=== PATIENT | female | born 1975 | race African-American/Black ===

== ENCOUNTER 2016-12-08 00:10 | Emergency (ER) | payer OTHER ==
[~2016-12-08] VITALS: Ht 152.4 cm; Wt 95.3 kg
[~2016-12-08 00:10] MED LIST: AMOXICILLIN 50500 MG PO; AUGMENTIN 875875 MG PO; FIORICET 50-321 EACH PO; FLEXERIL PO; FLONASE 0.05%50 MCG NS; HYDROCODON-ACE1 EAC7 PO; IBUPROFEN 800800 M1; INDOMETHACIN 2525 MG PO; LISINOPRIL10 MG PO; MECLIZINE HCL25 M1 PO; NAPROSYN500 MG PO; NORCO 5-325 TA1 EACH PO; NORFLEX100 MG PO; PRINIVIL10 MG PO; VICODIN 5-5001 EACH PO; ZANTAC 150MG T150 M1 PO; ZOFRAN4 MG PO
[2016-12-08] MEDS ORDERED: LISINOPRIL10 MG PO (02:41)
[2016-12-08 03:41] LABS: URINE BILIRUBIN NEGATIVE (Negative); URINE BLOOD 3+ (Negative); URINE COLOR YELLOW; URINE GLUCOSE-RANDOM* NEGATIVE (Negative); URINE KETONES NEGATIVE (Negative); URINE LEUKOCYTES-REFLEX TRACE (Negative); URINE PROTEIN (DIPSTICK) NEGATIVE (Negative)
[2016-12-08 03:54] LABS: SQUAMOUS 0-3 Few /LPF (0-3)
[2016-12-08 03:55] LABS: CASTS None Seen /LPF (None Seen); CRYSTALS None Seen /LPF (None Seen); URINE WBC-REFLEX 0-5 Rare /HPF (0-5)
[2016-12-08 04:03] LABS: ABSOLUTE NEUTROPHILS 5.4 thou/uL (1.4-8.2); BASOPHILS 0.5 % (0.0-2.0); EOSINOPHILS 1.1 % (0.0-3.0); HEMATOCRIT 39.9 % (37.0-47.0); HEMOGLOBIN 13.5 gm/dL (12.0-15.0); LYMPHOCYTES 36.2 % (24.0-44.0); MCH 29.2 pg (26.0-34.0); MCHC 33.9 % (28.0-37.0); MCV 86.1 fL (80.0-100.0); MONOCYTES 5.1 % (1.0-8.0); PLATELET COUNT 236 thou/uL (150-400); POLYS 57.1 % (36.0-66.0); RBC 4.63 mil/uL (4.20-5.00); RDW 14.2 % (10.5-14.5); WBC 9.4 thou/uL (4.0-11.0)
[2016-12-08 04:08] LABS: MANUAL DIFF NO
[2016-12-08 05:00] LABS: CALCIUM 8.6 mg/dL (8.5-10.1)
[2016-12-08 05:10] LABS: ALBUMIN 3.3 g/dL (3.4-5.0); TOTAL BILIRUBIN 0.3 mg/dL (<0.1-1.0); TOTAL PROTEIN 7.5 g/dL (6.4-8.2)
[2016-12-08] MEDS ORDERED: IBUPROFEN 800800 MG PO (05:25)
[2016-12-08 05:35] LABS: POTASSIUM 3.7 mmol/L (3.5-5.1)
[2016-12-08 05:45] VITALS: BP 157/97
== END 2016-12-08 05:46 | disposition home or self-care (01) ==
LOC: ER 00:10
PROVIDERS: Emergency Medicine
DX: D25.9 Leiomyoma of uterus, unspecified (principal); I10 Essential (primary) hypertension; F17.210 Nicotine dependence, cigarettes, uncomplicated; F10.99 Alcohol use, unspecified with unspecified alcohol-induced disorder

== ENCOUNTER 2017-07-11 09:45 | Emergency (ER) | payer BC ==
[~2017-07-11] VITALS: Ht 152.4 cm; Wt 95.3 kg
[~2017-07-11 09:45] MED LIST changes: +IBUPROFEN 800800 MG PO
[2017-07-11] MEDS ORDERED: NORVASC5 MG PO (09:51)
[2017-07-11] MEDS ORDERED: NORCO 5-325 TA1 EACH PO (09:51)
[2017-07-11] MEDS ORDERED: PREDNISONE 20 M20 MG PO (11:23)
[2017-07-11 11:41] VITALS: BP 157/94
== END 2017-07-11 12:06 | disposition home or self-care (01) ==
LOC: ER 09:45
DX: R51 Headache (principal); M54.12 Radiculopathy, cervical region; I10 Essential (primary) hypertension; F17.210 Nicotine dependence, cigarettes, uncomplicated; F10.99 Alcohol use, unspecified with unspecified alcohol-induced disorder

== ENCOUNTER 2018-01-15 16:08 | Emergency (ER) | payer OTHER ==
[~2018-01-15] VITALS: Ht 152.4 cm; Wt 106.1 kg
[~2018-01-15 16:08] MED LIST changes: +NORVASC5 MG PO; +PREDNISONE 20 M20 MG PO
[2018-01-15] MEDS ORDERED: LISINOPRIL20 MG PO (16:13)
[2018-01-15] MEDS ORDERED: BENADRYL25 MG PO (16:29)
[2018-01-15] MEDS ORDERED: NEOMYC-POLYM-DEX5 ML OPHTHALMIC (16:29)
[2018-01-15] MEDS ORDERED: BUTALB-APAP-CA1 EACH PO (16:29)
[2018-07-23] MEDS ORDERED: ANTIVERT25 MG PO (09:58)
== END 2018-01-15 16:42 | disposition home or self-care (01) ==
LOC: ER 16:08
DX: H10.9 Unspecified conjunctivitis (principal); H05.222 Edema of left orbit; R51 Headache; J30.9 Allergic rhinitis, unspecified; I10 Essential (primary) hypertension; F17.210 Nicotine dependence, cigarettes, uncomplicated

== ENCOUNTER 2019-09-04 08:49 | Emergency (ER) | payer BC ==
[~2019-09-04] VITALS: Ht 152.4 cm; Wt 104.3 kg
[~2019-09-04 08:49] MED LIST changes: +ANTIVERT25 MG PO; +BENADRYL25 MG PO; +BUTALB-APAP-CA1 EACH PO; +LISINOPRIL20 MG PO; +NEOMYC-POLYM-DEX5 ML OPHTHALMIC
[2019-09-04 09:30] LABS: URINE BILIRUBIN NEGATIVE (Negative); URINE BLOOD NEGATIVE (Negative); URINE CLARITY CLEAR; URINE COLOR YELLOW; URINE GLUCOSE-RANDOM* NEGATIVE (Negative); URINE KETONES NEGATIVE (Negative); URINE LEUKOCYTES-REFLEX NEGATIVE (Negative); URINE NITRITE-REFLEX NEGATIVE (Negative); URINE PROTEIN (DIPSTICK) NEGATIVE (Negative); URINE SPECIFIC GRAVITY 1.015 (1.005-1.035)
[2019-09-04] MEDS ORDERED: METHOCARBAMOL500 M2 PO (10:07)
[2019-09-04] MEDS ORDERED: NAPROSYN500 MG PO (10:07)
[2019-09-04 10:27] VITALS: BP 154/91
== END 2019-09-04 10:35 | disposition home or self-care (01) ==
LOC: ER 08:49
PROVIDERS: Emergency Medicine
DX: M54.5 Low back pain (principal); I10 Essential (primary) hypertension; F17.210 Nicotine dependence, cigarettes, uncomplicated

== ENCOUNTER 2019-10-21 19:02 | Emergency (ER) | payer BC ==
[~2019-10-21] VITALS: Ht 152.4 cm; Wt 104.3 kg
[~2019-10-21 19:02] MED LIST changes: +METHOCARBAMOL500 M2 PO
[2019-10-21 19:51] LABS: BASOPHILS 0.7 % (0.0-2.0); EOSINOPHILS 0.7 % (0.0-3.0); HEMATOCRIT 42.3 % (37.0-47.0); HEMOGLOBIN 13.9 gm/dL (12.0-15.0); LYMPHOCYTES 22.9 % (24.0-44.0); MCH 28.7 pg (26.0-34.0); MCHC 32.9 g/dL (28.0-37.0); MCV 87.1 fL (80.0-100.0); MONOCYTES 4.8 % (1.0-8.0); PLATELET COUNT 278 thou/uL (150-400); POLYS 70.9 % (36.0-66.0); RBC 4.86 mil/uL (4.20-5.00); RDW 15.5 % (10.5-14.5); WBC 12.8 thou/uL (4.0-11.0)
[2019-10-21 19:57] LABS: CALCIUM 9.4 mg/dL (8.5-10.1)
[2019-10-21 21:29] LABS: URINE BILIRUBIN NEGATIVE (Negative); URINE BLOOD NEGATIVE (Negative); URINE CLARITY TURBID; URINE COLOR YELLOW; URINE GLUCOSE-RANDOM* NEGATIVE (Negative); URINE KETONES NEGATIVE (Negative); URINE LEUKOCYTES-REFLEX NEGATIVE (Negative); URINE NITRITE-REFLEX NEGATIVE (Negative); URINE PROTEIN (DIPSTICK) NEGATIVE (Negative); URINE SPECIFIC GRAVITY >= 1.030 (1.005-1.035); URINE UROBILINOGEN 0.2 E.U./dl (0.2-1.0)
[2019-10-21] MEDS ORDERED: ZESTRIL20 MG PO (21:32)
[2019-10-21] MEDS ORDERED: NORVASC5 M1 PO (21:33)
[2019-10-21] MEDS ORDERED: OMEPRAZOLE 20 M20 M1 PO (21:34)
[2019-10-21 21:47] VITALS: BP 179/106
--- NOTE | 2019-10-22 08:41 | EKG ---
[place] [address] [facility] [place] [address] ELECTROCARDIOGRAM REPORT Name: ELISA ROBLES Room #: [facility]#: [id number] Admission: 10/21/19 Attend Phys: Discharge: 10/21/19 Date of : 71 Report #: [id number] THIS REPORT FOR: //name// [facility] ED Test Date: 2019-10-21 Test Time: 19:51:16 Pat Name: ELISA ROBLES Department: Room: Gender: F [facility]: BRITTNI : 1975 Requested By: Ping Peck Order Number: [id number] MD: Gallo Pedraza Measurements Intervals [place] Rate: 93 P: 8 NM: 156 QRS: -35 QRSD: 82 T: 44 QT: 360 QTc: 448 Interpretive Statements Sinus rhythm Left axis deviation Abnormal R-wave progression, late transition Compared to ECG 09/25/2017 15:45:37 No significant change was found Electronically Signed On 10-22-2019 8:41:13 CLINICAL INFORMATICS EDUCATOR by Gallo Pedraza [email or web address] <ELECTRONICALLY SIGNED> By: Gallo Pedraza MD, [facility] 10/22/19 0841 50 50 Gallo Pedraza MD, FACC /EPI
== END 2019-10-21 21:49 | disposition home or self-care (01) ==
LOC: ER 19:02
PROVIDERS: Nurse Practitioner
DX: I10 Essential (primary) hypertension (principal); R42 Dizziness and giddiness; R51 Headache; F17.210 Nicotine dependence, cigarettes, uncomplicated; Z79.899 Other long term (current) drug therapy

== ENCOUNTER 2019-11-21 09:42 | Emergency (ER) | payer BC ==
[~2019-11-21] VITALS: Ht 152.4 cm; Wt 104.3 kg
[~2019-11-21 09:42] MED LIST changes: +NORVASC5 M1 PO; +OMEPRAZOLE 20 M20 M1 PO; +ZESTRIL20 MG PO
[2019-11-21] MEDS ORDERED: MOBIC7.5 MG PO ×2 (11:37→11:42)
[2019-11-21] MEDS ORDERED: PREDNISONE 20 M20 MG PO ×2 (11:37→11:42)
[2019-11-21 11:45] VITALS: BP 149/89
== END 2019-11-21 11:46 | disposition home or self-care (01) ==
LOC: ER 09:42
DX: R05 Cough (principal); I10 Essential (primary) hypertension; F17.210 Nicotine dependence, cigarettes, uncomplicated

== ENCOUNTER 2019-12-07 17:15 | Observation (INO) | payer BC ==
[~2019-12-07] VITALS: Ht 152.4 cm; Wt 108.8 kg
[2019-12-07 17:15] VITALS: BP 188/107
[~2019-12-07 17:15] MED LIST changes: +MOBIC7.5 MG PO
[2019-12-07 19:45] LABS: HEMATOCRIT 43.2 % (37.0-47.0); HEMOGLOBIN 14.2 gm/dL (12.0-15.0); MCHC 32.8 g/dL (28.0-37.0); MCV 88.5 fL (80.0-100.0); RBC 4.88 mil/uL (4.20-5.00); RDW 15.3 % (10.5-14.5); WBC 12.2 thou/uL (4.0-11.0)
[2019-12-07 19:58] LABS: CALCIUM 8.7 mg/dL (8.5-10.1); CREATININE 0.9 mg/dL (0.6-1.0)
[2019-12-07 20:15] VITALS: BP 155/82
[2019-12-07 20:28] VITALS: BP 149/81
[2019-12-07 23:44] VITALS: BP 133/56
[2019-12-08 03:13] VITALS: BP 125/55
--- NOTE | 2019-12-08 06:01 | NUR ---
Admitted pt from ED last night about 2029. Pt has rested intermittently. Top lip noted to be slightly swollen, but no tongue swelling noted. Pt reports some itching to lip this a.m. Resps even/unlabored, no distress, NSR per tele. Progressing towards discharge goals.
[2019-12-08 07:22] VITALS: BP 132/80
[2019-12-08] MEDS ORDERED: NORVASC10 MG PO (09:41)
[2019-12-08] MEDS ORDERED: PREDNISONE 5 MG5 M1 PO (09:42)
--- NOTE | 2019-12-08 10:37 | NUR ---
PATIENT WILL BE DISCHARGED THIS AM. SHE IS ALERT ORIENTED X3. SHE AMBULATES WITH STEADY GAIT. ANGIOEDEMA SIGNIFICANTLY IMPROVED. HE HAS UNLABORED RESPIRATIONS. WILL CONT WITH PLAN OF CARE.
[2019-12-08 10:48] VITALS: BP 132/80
== END 2019-12-08 11:00 | disposition home or self-care (01) ==
LOC: ER 17:15 → EROBS 19:14 → 3W 19:14
PROVIDERS: Emergency Medicine Emergency Medical Services; ADMIT Hospitalist
DX: T78.3XXA Angioneurotic edema, initial encounter (principal); Y92.89 Other specified places as the place of occurrence of the external cause
CPT/HCPCS: 10879

== ENCOUNTER 2020-05-11 16:17 | Emergency (ER) | payer BC ==
[~2020-05-11] VITALS: Ht 152.4 cm; Wt 104.3 kg
[~2020-05-11 16:17] MED LIST changes: +NORVASC10 MG PO; +PREDNISONE 5 MG5 M1 PO
[2020-05-11] MEDS ORDERED: MOBIC15 MG PO (17:59)
[2020-05-11] MEDS ORDERED: CYCLOBENZAPRINE5 MG PO (17:59)
[2020-05-11 18:02] VITALS: BP 161/98
== END 2020-05-11 18:08 | disposition home or self-care (01) ==
LOC: ER 16:17
DX: S43.82XA Sprain of other specified parts of left shoulder girdle, initial encounter (principal); M54.12 Radiculopathy, cervical region; M17.11 Unilateral primary osteoarthritis, right knee; I10 Essential (primary) hypertension; F17.210 Nicotine dependence, cigarettes, uncomplicated; Z98.890 Other specified postprocedural states; X58.XXXA Exposure to other specified factors, initial encounter; Y93.89 Activity, other specified; Y92.89 Other specified places as the place of occurrence of the external cause; Y99.8 Other external cause status

== ENCOUNTER 2020-05-20 00:55 | Emergency (ER) | payer BC ==
[~2020-05-20] VITALS: Ht 152.4 cm; Wt 104.3 kg
[~2020-05-20 00:55] MED LIST changes: +CYCLOBENZAPRINE5 MG PO; +MOBIC15 MG PO
[2020-05-20 01:01] VITALS: BP 113/64
[2020-05-20] MEDS ORDERED: BENADRYL25 MG PO (01:05)
[2020-05-20] MEDS ORDERED: PERCOCET 5-3251 EACH PO (01:33)
== END 2020-05-20 01:45 | disposition home or self-care (01) ==
LOC: ER 00:55
DX: S92.345A Nondisplaced fracture of fourth metatarsal bone, left foot, initial encounter for closed fracture (principal); S92.355A Nondisplaced fracture of fifth metatarsal bone, left foot, initial encounter for closed fracture; I10 Essential (primary) hypertension; F17.210 Nicotine dependence, cigarettes, uncomplicated; Z98.890 Other specified postprocedural states; Z79.899 Other long term (current) drug therapy; Z88.8 Allergy status to other drugs, medicaments and biological substances; W22.09XA Striking against other stationary object, initial encounter; Y93.89 Activity, other specified; Y92.002 Bathroom of unspecified non-institutional (private) residence as the place of occurrence of the external cause; Y99.8 Other external cause status

== ENCOUNTER 2021-09-13 01:32 | Emergency (ER) | payer OTHER ==
[~2021-09-13] VITALS: Ht 152.4 cm; Wt 66.7 kg
[~2021-09-13 01:32] MED LIST changes: +PERCOCET 5-3251 EACH PO
[2021-09-13] MEDS ORDERED: NAPROSYN500 M1 PO (02:15)
[2021-09-13 03:08] VITALS: BP 148/93
== END 2021-09-13 03:09 | disposition home or self-care (01) ==
LOC: ER 01:32
DX: S82.64XA Nondisplaced fracture of lateral malleolus of right fibula, initial encounter for closed fracture (principal); I10 Essential (primary) hypertension; F17.210 Nicotine dependence, cigarettes, uncomplicated; Z88.8 Allergy status to other drugs, medicaments and biological substances; X50.1XXA Overexertion from prolonged static or awkward postures, initial encounter; Y93.89 Activity, other specified; Y92.89 Other specified places as the place of occurrence of the external cause; Y99.8 Other external cause status

== ENCOUNTER 2021-09-21 18:53 | Emergency (ER) | payer OTHER ==
[~2021-09-21] VITALS: Ht 152.4 cm; Wt 81.7 kg
[~2021-09-21 18:53] MED LIST changes: +NAPROSYN500 M1 PO
[2021-09-21 18:56] VITALS: BP 184/114
[2021-09-21] MEDS ORDERED: NORVASC10 MG PO ×2 (20:43→21:00)
== END 2021-09-21 21:27 | disposition home or self-care (01) ==
LOC: ER 18:53
DX: S82.61XD Displaced fracture of lateral malleolus of right fibula, subsequent encounter for closed fracture with routine healing (principal); M79.604 Pain in right leg; I10 Essential (primary) hypertension; E66.01 Morbid (severe) obesity due to excess calories; F17.210 Nicotine dependence, cigarettes, uncomplicated; Z98.890 Other specified postprocedural states; Z68.35 Body mass index [BMI] 35.0-35.9, adult; Z88.8 Allergy status to other drugs, medicaments and biological substances; Z79.899 Other long term (current) drug therapy; X58.XXXD Exposure to other specified factors, subsequent encounter

== ENCOUNTER 2021-10-30 01:54 | Emergency (ER) | payer OTHER ==
[~2021-10-30] VITALS: Ht 152.4 cm; Wt 104.3 kg
[2021-10-30] MEDS ORDERED: NAPROSYN500 MG PO (02:13)
[2021-10-30 02:47] VITALS: BP 142/82
== END 2021-10-30 02:47 | disposition home or self-care (01) ==
LOC: ER 01:54
DX: S00.93XA Contusion of unspecified part of head, initial encounter (principal); I10 Essential (primary) hypertension; E66.01 Morbid (severe) obesity due to excess calories; F17.210 Nicotine dependence, cigarettes, uncomplicated; Z68.41 Body mass index [BMI] 40.0-44.9, adult; Z98.890 Other specified postprocedural states; Z79.899 Other long term (current) drug therapy; Z88.8 Allergy status to other drugs, medicaments and biological substances; W17.89XA Other fall from one level to another, initial encounter; Y93.89 Activity, other specified; Y92.89 Other specified places as the place of occurrence of the external cause; Y99.8 Other external cause status